=== PATIENT | female | born 1995 | race African-American/Black ===

== ENCOUNTER 2020-11-20 21:44 | Emergency (ER) | payer MEDICAID ==
[2020-11-20 22:37] LABS: #Eosinphils 0.1 thou/uL (0.0-0.7); #Lymphocytes 1.4 thou/uL (1.20-3.40); #Monocytes 0.4 thou/uL (0.11-0.59); #Neutrophils 4.3 thou/uL (1.40-6.50); %Basophils 0.3 % (0.0-1.0); %Eosinophils 1.4 % (0.0-10.0); %Lymphocytes 22.3 % (21.0-51.0); Hemoglobin 11.5 g/dL (12.0-16.0); Mean Corpuscular Volume 94.3 fL (78.0-98.0); Mean Platelet Volume 8.5 fL (7.4-10.4); Platelet Count 302 thou/uL (130-400); RBC Distribution Width 12.3 % (11.5-14.5); White Blood Cell (WBC) Count 6.2 thou/uL (4.8-10.8)
--- NOTE | 2020-11-21 09:36 | ULT ---
PRELIMINARY REPORT/[facility]/EMERGENCY AFTER HOURS PROCEDURE EXAM: US Obstetrical, Complete <14 weeks CLINICAL HISTORY: HX: SPOTTING, 8WKS PREG. TECHNIQUE: Transvaginal imaging of the maternal pelvis and a <14 week gestation with image documentation. COMPARISON: None provided. FINDINGS: GESTATION: An intrauterine gestation is noted with a CRL of 2 cm corresponding to 8 weeks 4 days and demonstrati ng a heartbeat of 188 bpm. The estimated due date is 06/29/2021 UTERUS: Unremarkable. No myometrial mass. Measures 8.7 x 5.0 x 6.2 cm CERVIX: Closed. Unremarkable. OVARIES: Unremarkable. No mass. The RIGHT side measures 3.3 x 2.2 x 4.4 cm and the LEFT side measures 3.0 x 1 .9 x 3.1 cm FREE FLUID: No free fluid. IMPRESSION: Single viable intrauterine . No acute abnormality. ELECTRONICALLY SIGNED BY: Frank Burk MD Nov 21, 2020 2:07:33 AM [employer] This report is intended for review by the ordering physician only, in accordance of law. If you recei ve this report in error, please call [facility] at [phone]. FINAL REPORT Exam: Endovaginal pelvic ultrasound HISTORY: patient. Spotting. COMPARISON: None. TECHNIQUE: Endovaginal imaging of the pelvis is performed. Ovaries are interrogated grayscale, color flow, Doppler imaging and spectral waveform analysis. FINDINGS: Uterus is identified. No myometrial masses. Uterus measures 8.7 x 5.0 x 6.3 cm Within the endometrium, there is a gestational sac, yolk sac and pole. Pender-rump length is 2.0 1 cm, corresponding to gestational age of 8 weeks 4 days. No subchorionic hemorrhage. heart tones: 179-188 bpm. No free fluid. Left and right ovary have a normal echotexture. Left ovary measures 3.1 x 2.0 x 3.1 cm. Right ovary m easures 2.2 x 4.4 x 3.3 cm. Ovarian Doppler: Vascular flow to the left and right ovary. IMPRESSION: 1. This report is in agreement with initial report by [facility]. 2. Single intrauterine gestation with heart tones. Transcribed Date/Time: 11/21/2020 9:44 AM
== END 2020-11-21 02:29 | disposition home or self-care (01) ==
LOC: ERS 21:44
DX: O20.0 Threatened abortion (principal); Z3A.08 8 weeks gestation of pregnancy
CPT/HCPCS: 36415; 76856; 84702; 85025; 86900; 86901